=== PATIENT | female | born 1995 | race Caucasian/White ===

== ENCOUNTER → 2016-10-25 | Outpatient (CLI) | payer OTHER ==
--- NOTE | ~2016-10-25 | CR63 ---
[facility] A Service of [facility] & [facility] RADIOLOGY TEXT RESULTS PATIENT: BRIAN IGNACIO LOCATION: [facility] : [birth year] UNIT #: [id number] AGE: [address]: Sima CavazosP SEX: F ORDER DR: [id number] [place] [id number] O MR#: [id number] Acc #: [id number] NAME: BRIAN IGNACIO : 1995 SEX: F STUDY DATE/TIME: 10/25/2016 22:14 UNIT: [facility] ROOM: STUDY DESCRIPTION: CR Chest 2 View Attending Physician: Sima Cavazos A.P.R.N. Referring Physician: Sima Cavazos A.P.R.N. Ordering Physician: Sima Cavazos A.P.R.N. Primary Care Physician: No Primary Care Physician MEDICAL IMAGING REPORT This report is preliminary unless electronic signature is present. EXAM Two-view chest. INDICATIONS Posterior chest pain for the past 3 months. PROCEDURE Frontal and lateral views of the chest. COMPARISON None. FINDINGS Heart size normal. Lungs clear. No pleural fluid. No pneumothorax. IMPRESSION No active process. Dictated by... Israel Alcaraz M.D. THIS IS AN ELECTRONICALLY VERIFIED REPORT Israel Alcaraz M.D. at 10/26/2016 4:52 PM EEPrecious/savanna TD: 10/26/2016 10:27 JOB #: [id number] MEDICAL IMAGING REPORT
--- NOTE | ~2016-10-25 | CR58 ---
[facility]. [facility] A Service of [facility] & [facility] RADIOLOGY TEXT RESULTS PATIENT: BRIAN IGNACIO LOCATION: [facility] : [birth year] UNIT #: [id number] AGE: [address]: Sima Cavazos SEX: F ORDER DR: [id number] [place] [id number] O MR#: [id number] Acc #: [id number] NAME: BRIAN IGNACIO : 1995 SEX: F STUDY DATE/TIME: 10/25/2016 22:14 UNIT: [facility] ROOM: STUDY DESCRIPTION: CR Cervical Spine 2 or 3 Views Attending Physician: Sima Cavazos A.P.R.N. Referring Physician: Sima Cavazos A.P.R.N. Ordering Physician: Sima Cavazos A.P.R.N. Primary Care Physician: No Primary Care Physician MEDICAL IMAGING REPORT This report is preliminary unless electronic signature is present. EXAM Cervical spine 3 views HISTORY SUPPLIED Neck pain with numbness and tingling in both hands beginning 3 months ago. 3 views of the cervical spine are obtained. Cervical alignment is normal. Disc space and vertebral body height is maintained. Atlantoaxial relationships are intact. CONCLUSION Normal. Dictated by... Maycol Farrar M.D. THIS IS AN ELECTRONICALLY VERIFIED REPORT Maycol Farrar M.D. at 10/26/2016 5:06 PM ESTHER/eboni TD: 10/26/2016 10:55 JOB #: [id number] MEDICAL IMAGING REPORT
== END | disposition home or self-care (01) ==
LOC: SRAD 21:29
DX: M54.2 Cervicalgia (principal); F17.200 Nicotine dependence, unspecified, uncomplicated
CPT/HCPCS: 71020; 72040

== ENCOUNTER → 2017-05-07 | Outpatient (CLI) | payer OTHER ==
--- NOTE | ~2017-05-07 | CR282 ---
[facility]. [facility] A Service of [facility] & [facility] RADIOLOGY TEXT RESULTS PATIENT: BRIAN IGNACIO LOCATION: [facility] : [birth year] UNIT #: [id number] AGE: [address]: Sima Cavazos SEX: F ORDER DR: [id number] [address] [address] [id number] O MR#: [id number] Acc #: [id number] NAME: RBIAN IGNACIO : 1995 SEX: F STUDY DATE/TIME: 05/07/2017 16:05 UNIT: [facility] ROOM: STUDY DESCRIPTION: CR Wrist Min 3 View Rt Attending Physician: Sima Cavazos A.P.R.N. Ordering Physician: Sima Cavazos A.P.R.N. Primary Care Physician: No Primary Care Physician MEDICAL IMAGING REPORT This report is preliminary unless electronic signature is present. EXAM Right wrist 05/07/2017 HISTORY 22-year-old female with right wrist pain, numbness and tingling, for 1.5 weeks. No specific injury. COMPARISON Right hand 12/23/2014 FINDINGS Three views of the right wrist demonstrate no acute fracture or dislocation. Joint spaces are normal. Soft tissues are unremarkable. IMPRESSION Unremarkable right wrist Dictated by... José Miguel Harris M.D. THIS IS AN ELECTRONICALLY VERIFIED REPORT José Miguel Harris M.D. at 05/10/2017 2:07 PM JAYJAY/debbie TD: 05/08/2017 01:06 JOB #: [id number] MEDICAL IMAGING REPORT Page 1 of 1
== END | disposition home or self-care (01) ==
LOC: SRAD 15:55
DX: M25.531 Pain in right wrist (principal)
CPT/HCPCS: 73110